=== PATIENT | female | born 1965 | race Caucasian/White ===

== ENCOUNTER 2021-12-14 14:36 | Emergency (ER) | payer MEDICARE, SELFPAY ==
[2021-12-14 14:37] VITALS: BP 166/110; PULSE 101; RESP 18; TEMP 37.2; O2SAT 95; BMI 37.6
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
== END 2021-12-14 16:33 | disposition home or self-care (01) ==
PROVIDERS: Emergency Provider Emergency Medicine; PCP Nurse Practitioner Family; Visit Provider Emergency Medicine
DX: M25.511 Pain in right shoulder (principal); M25.569 Pain in unspecified knee; I10 Essential (primary) hypertension; E03.9 Hypothyroidism, unspecified; M54.2 Cervicalgia; V49.40XA Driver injured in collision with unspecified motor vehicles in traffic accident, initial encounter
CPT/HCPCS: 73030; 73564; 99282